=== PATIENT | female | born 1960 | race American Indian/Alaskan Native ===

== ENCOUNTER 2017-10-17 18:58 | Inpatient (IN) | payer BC, OTHER ==
[2017-10-17] MEDS ORDERED: Sodium Chloride 0.9% 1,000 ML IV STA (19:35)
--- NOTE | 2017-10-17 19:38 | C.PDOC ---
History Of Present Illness 57 y/o F p/w L flank pain x about 3 weeks[address] Patient had outpatient CT which showed kidney stone and has been taking ibuprofen 800mg for pain, referred to Dr. Tyrone Barreto but has not yet made appointment. Today, with same but much worsening pain, L flank, radiating to L groin, severe, associated with painful urination and instructed by physician to come to ED. Denies fever, chills, nausea, vomiting. Time Seen by Provider: 10/17/17 19:26 Chief Complaint (Nursing): Female Genitourinary Past Medical History Vital Signs: Last Vital Signs Temp 98.1 F 10/17/17 20:47 Pulse 82 10/17/17 20:47 Resp 18 10/17/17 20:47 BP 106/73 10/17/17 20:47 Pulse Ox 97 10/17/17 20:47 - Medical History PMH: HTN, Hyperlipidemia Surgical History: Appendectomy Family History: States: No Known Family Hx - Social History Hx Alcohol Use: No Hx Substance Use: No Review Of Systems Except As Marked, All Systems Reviewed And Found Negative. Constitutional: Negative for: Fever Cardiovascular: Negative for: Chest Pain Physical Exam - Physical Exam Additional Physical Exam Comments: Gen: NAD Head: NC/AT Eyes: PERRL ENT: MMM Neck: Supple Chest: No tenderness CV: Regular rate Lungs: CTA b/l Abd: Soft Back: L CVA tenderness Extremities: No edema Skin: No rash Neuro: Alert, no focal deficit ED Course And Treatment - Laboratory Results Result Diagrams: 10/17/17 20:22 10/17/17 20:09 O2 Sat by Pulse Oximetry: 99 Medical Decision Making Medical Decision Making: IMPRESSION: Markedly enlarged left kidney with severe left hydronephrosis which appears chronic and demonstrates numerous large staghorn calculi involving most major mid and lower pole calyces. An obstructing stone of the left renal pelvis is also present. An acute infectious process or pyelonephritis cannot be excluded. Numerous other incidental findings, which are detailed above. UA shows UTI. Admission indicated for infected obstructive stone. Ciprofloxacin administered. Cultures drawn. Dr. Josue accepts patient to medical service and consult placed for Dr. Barreto. Disposition - Disposition Disposition: HOSPITALIZED Disposition Time: 21:02 Condition: GUARDED - Clinical Impression Clinical Impression: Pyelonephritis, Nephrolithiasis, Hydronephrosis
[2017-10-17] MEDS ORDERED: Sodium Chloride 0.9% 1,000 ML ONE (19:53)
[2017-10-17 20:21] LABS: URINE BACTERIA MANY (<OCC); URINE BILIRUBIN NEGATIVE (NEGATIVE); URINE BLOOD 2+ (NEGATIVE); URINE CLARITY Turbid (Clear); URINE COLOR Yellow (YELLOW); URINE GLUCOSE (UA) NORMAL (Normal); URINE LEUKOCYTE ESTERASE 3+ Leu/uL (Negative); URINE PROTEIN 2+ mg/dL (NEGATIVE); URINE UROBILINOGEN NORMAL mg/dL (0.2-1.0)
[2017-10-17 20:25] LABS: BASO # 0.1 K/uL (0.0-0.2); BASO % 0.7 % (0.0-2.0); EOS # 0.2 K/uL (0.0-0.7); EOS % 1.9 % (0.0-4.0); HEMOGLOBIN 10.9 g/dL (11.0-16.0); LYMPH # 3.7 K/uL (1.0-4.3); LYMPH % 37.3 % (20.0-40.0); MEAN CELL VOLUME 89.4 fL (81.0-99.0); MEAN CORPUSCULAR HEMOGLOBIN 29.2 pg (27.0-31.0); MEAN CORPUSCULAR HGB CONC 32.7 g/dL (33.0-37.0); MEAN PLATELET VOLUME 6.1 fL (7.2-11.7); MONO # 1.2 K/uL (0.0-0.8); MONO % 11.9 % (0.0-10.0); NEUT # 4.8 K/uL (1.8-7.0); NEUT % 48.2 % (50.0-75.0); RBC 3.71 Mil/uL (3.80-5.20); RED CELL DISTRIBUTION WIDTH 15.1 % (11.5-14.5); WHITE BLOOD COUNT 9.9 K/uL (4.8-10.8)
[2017-10-17 21:00] LABS: ALB/GLOB RATIO 0.6 (1.0-2.1); ALBUMIN 3.5 g/dL (3.5-5.0)
[2017-10-17] MEDS ORDERED: Ciprofloxacin 400mg/200ml D5W 400 MG/200 ML BAG IVPB STA (21:20)
[2017-10-17] MEDS ORDERED: Morphine 4 MG/ML VIAL IVP PRN (22:00)
[2017-10-18] MEDS: Ciprofloxacin 400mg/200ml D5W 400 MG/200 ML BAG IVPB SCH (10:49)
--- NOTE | 2017-10-18 11:37 | CP.PCM.HP ---
History of Present Illness - History of Present Illness History of Present Illness: pt came in to er for progressive flank pain and uti has renal stons Present on Admission - Present on Admission Any Indicators Present on Admission: No Review of Systems - Review of Systems Systems not reviewed;Unavailable: Acuity of Condition - Constitutional Constitutional: Fatigue - EENT Eyes: As Per HPI Ears: As Per HPI Nose/Mouth/Throat: As Per HPI - Breasts Breasts: As Per HPI - Cardiovascular Cardiovascular: As Per HPI - Respiratory Respiratory: As Per HPI - Gastrointestinal Gastrointestinal: As Per HPI - Genitourinary Genitourinary: Dysuria, Flank Pain, Pyuria, Urinary Frequency Additional comments: kidney stons - Reproductive: Female Reproductive:Female: As Per HPI - Menstruation Menstruation: As Per HPI, Post Menopausal - Musculoskeletal Musculoskeletal: Abnormal Gait - Integumentary Integumentary: As Per HPI - Neurological Neurological: As Per HPI - Endocrine Endocrine: As Per HPI - Hematologic/Lymphatic Hematologic: As Per HPI Past Patient History - Past Medical History & Family History Past Medical History?: Yes - Past Social History Smoking Status: Never Smoked - CARDIAC Hx Cardiac Disorders: Yes Hx Hypertension: Yes - PULMONARY Hx Respiratory Disorders: No - NEUROLOGICAL Hx Neurological Disorder: No - HEENT Hx HEENT Problems: No - RENAL Hx Chronic Kidney Disease: No - ENDOCRINE/METABOLIC Hx Endocrine Disorders: No - HEMATOLOGICAL/ONCOLOGICAL Hx Blood Disorders: No - INTEGUMENTARY Hx Dermatological Problems: No - MUSCULOSKELETAL/RHEUMATOLOGICAL Hx Falls: No - GASTROINTESTINAL Hx Gastrointestinal Disorders: No - GENITOURINARY/GYNECOLOGICAL Hx Genitourinary Disorders: Yes Hx Urinary Tract Infection: Yes Other/Comment: KIDNEY STONE, LEFT - PSYCHIATRIC Hx Substance Use: No - SURGICAL HISTORY Hx Surgeries: Yes Hx Appendectomy: Yes - ANESTHESIA Hx Anesthesia: Yes Hx Anesthesia Reactions: No Hx Malignant Hyperthermia: No Has any member of the family had a problem w/ anesthesia?: No Meds Allergies/Adverse Reactions: Allergies Allergy/AdvReac Type Severity Reaction Status Date / Time No Known Allergies Allergy Unverified 10/17/17 19:22 Physical Exam - Constitutional Appears: In Acute Distress - Head Exam Head Exam: ATRAUMATIC - Eye Exam Eye Exam: Normal appearance Pupil Exam: NORMAL ACCOMODATION - ENT Exam ENT Exam: Mucous Membranes Moist - Neck Exam Neck exam: Positive for: Full Rom - Respiratory Exam Respiratory Exam: Decreased Breath Sounds - Cardiovascular Exam Cardiovascular Exam: REGULAR RHYTHM - GI/Abdominal Exam GI & Abdominal Exam: Normal Bowel Sounds, Tenderness (both flank areas) Additional comments: both flank areas - Rectal Exam Rectal Exam: Deferred - Extremities Exam Extremities exam: Positive for: normal inspection - Back Exam Back exam: CVA tenderness (L) - Neurological Exam Neurological exam: Oriented x3 - Psychiatric Exam Psychiatric exam: Normal Affect - Skin Skin Exam: Normal Color Results - Vital Signs Recent Vital Signs: Last Vital Signs Temp 98.6 F 10/18/17 08:00 Pulse 76 10/18/17 08:00 Resp 20 10/18/17 08:00 BP 103/59 L 10/18/17 08:00 Pulse Ox 96 10/18/17 08:00 - Labs Result Diagrams: 10/17/17 20:22 10/17/17 20:09 Labs: Laboratory Results - last 24 hr 10/17/17 10/17/17 10/17/17 20:09 20:09 20:22 WBC 9.9 RBC 3.71 L Hgb 10.9 L Hct 33.2 L MCV 89.4 MCH 29.2 MCHC 32.7 L RDW 15.1 H Plt Count 537 H MPV 6.1 L Neut % (Auto) 48.2 L Lymph % (Auto) 37.3 Sampson % (Auto) 11.9 H Eos % (Auto) 1.9 Baso % (Auto) 0.7 Neut # (Auto) 4.8 Lymph # (Auto) 3.7 Sampson # (Auto) 1.2 H Eos # (Auto) 0.2 Baso # (Auto) 0.1 Sodium 142 Potassium 4.4 Chloride 100 Carbon Dioxide 29 Anion Gap 17 BUN 18 H Creatinine 1.2 Est GFR ( Amer) 56 Est GFR (Non-Af Amer) 46 Random Glucose 122 H Calcium 10.0 Total Bilirubin 0.4 AST 32 ALT 23 Alkaline Phosphatase 147 H Total Protein 9.0 H Albumin 3.5 Globulin 5.5 H Albumin/Globulin Ratio 0.6 L Urine Color Yellow Urine Clarity Turbid Urine pH 5.0 Ur Specific [place] 1.019 Urine Protein 2+ H Urine Glucose (UA) Normal Urine Ketones Negative Urine Blood 2+ H Urine Nitrate Negative Urine Bilirubin Negative Urine Urobilinogen Normal Ur Leukocyte Esterase 3+ H Urine WBC (Auto) 8994 H Urine RBC (Auto) 516 H Urine Bacteria Many H Assessment & Plan - Assessment and Plan (Free Text) Assessment: ac uti kidney stons aneamia posible dm Plan: admit and as per orders - Date & Time Date: 10/18/17 Time: 11:41
--- NOTE | 2017-10-18 12:46 | CT ---
Date of service: 10/17/2017 PROCEDURE: CT Abdomen and Pelvis without intravenous contrast HISTORY: L flank pain COMPARISON: None. TECHNIQUE: Helical CT of the abdomen and pelvis was performed without oral or intravenous contrast as per referring physician request. Contrast dose: None Radiation dose: Total exam DLP = 1020.57 mGy-cm. This CT exam was performed using one or more of the following dose reduction techniques: Automated exposure control, adjustment of the mA and/or kV according to patient size, and/or use of iterative reconstruction technique. FINDINGS: LOWER THORAX: Linear atelectasis or fibrosis in the left lower lobe bases with patchy atelectasis identified in the bilateral bases otherwise. Mild cardiomegaly, trace pericardial effusion or thickening. Small hiatal hernia. LIVER: Unremarkable. No gross lesion or ductal dilatation. GALLBLADDER AND BILE DUCTS: Unremarkable. PANCREAS: Unremarkable. No gross lesion or ductal dilatation. SPLEEN: Unremarkable. ADRENALS: Unremarkable. No mass. KIDNEYS AND URETERS: There there is a grossly enlarged left kidney due to large staghorn calculus and obstructive uropathy resulting. Pyonephrosis is not excluded. The left kidney measures 18.2 x 11.3 x 11.8 cm. Limited perinephric reaction is appreciated. The pattern is long-standing although infection may be acute. Clinically correlate further. The lack images contrast limits interpretation. The right kidney appears unremarkable as imaged. VASCULATURE: Unremarkable. No aortic aneurysm. BOWEL: The stomach is decompressed. There is no bowel obstruction identified. Moderate fecal loading is seen in various large-bowel segments there is a large right spigelian hernia containing several loops of large and small bowel. No incarceration appreciable. The neck of the hernia measures 7.5 cm. A small umbilical hernia is identified containing a minimal amount of fat within neck measuring 3.4 cm. APPENDIX: Unremarkable. Normal appendix. PERITONEUM: Unremarkable. No free fluid. No free air. LYMPH NODES: Unremarkable. No enlarged lymph nodes. BLADDER: Unremarkable. REPRODUCTIVE: Lobular uterine soft tissue changes are appreciate suggesting fibroid uterine disease. BONES: No acute fracture. OTHER FINDINGS: None. IMPRESSION: 1. Obstructive enlargement of the left kidney is appreciated due low staghorn calculus causing gross hydronephrosis with underlying pyonephrosis not excluded of indeterminate age. Enlargement is chronic but the possibility of an acute infection is not excluded. Unremarkable right kidney in urinary bladder. 2. Large right spigelian hernia containing bowel without obstruction/incarceration. Small umbilical hernia containing only mesenteric fat. 3. Lack of contrast agents limits the interpretation of the abdominal and pelvic viscera. There is likely uterine fibroid disease. Concordant preliminary report from [facility], 11/13/2017.
[2017-10-18] MEDS: Rosuvastatin Calcium 2.5 mg Tab PO SCH (21:21)
[2017-10-19] MEDS: Ciprofloxacin 400mg/200ml D5W 400 MG/200 ML BAG IVPB SCH (09:38)
--- NOTE | 2017-10-19 09:50 | CP.PCM.PN ---
Subjective - Date & Time of Evaluation Date of Evaluation: 10/19/17 Time of Evaluation: 09:47 - Subjective Subjective: pt still in a lot of pain flank area still has uti aneamia Objective - Vital Signs/Intake and Output Vital Signs (last 24 hours): Temp Pulse Resp BP Pulse Ox 99.4 F 81 20 94/65 L 96 10/19/17 08:00 10/19/17 08:00 10/19/17 08:00 10/19/17 08:00 10/19/17 08:00 Intake and Output: 10/19/17 10/19/17 06:59 18:59 Intake Total 100 Balance 100 - Medications Medications: Current Medications Docusate Sodium (Colace) 100 mg PO BID [facility] Last Admin: 10/19/17 09:39 Dose: 100 mg Hydrochlorothiazide (Hydrodiuril) 25 mg PO DAILY [facility] Last Admin: 10/18/17 10:49 Dose: 25 mg Ciprofloxacin (Cipro 400mg/200ml Dsw) 400 mg in 200 mls @ 133 mls/hr IVPB DAILY [facility] PRN Reason: Protocol Last Admin: 10/19/17 09:38 Dose: 133 mls/hr Ketorolac Tromethamine (Toradol) 30 mg IVP Q8H PRN PRN Reason: Pain, moderate (4-7) Last Admin: 10/18/17 17:51 Dose: 30 mg Morphine Sulfate (Morphine) 4 mg IVP Q6H PRN PRN Reason: Pain, severe (8-10) Pneumococcal Polyvalent Vaccine (Pneumovax 23 Vaccine) 0.5 ml IM .ONCE ONE Stop: 10/19/17 10:01 Rosuvastatin Calcium (Crestor) 2.5 mg PO [facility] Last Admin: 10/18/17 21:21 Dose: 2.5 mg - Labs Labs: 10/17/17 20:22 10/17/17 20:09 - Constitutional Appears: Non-toxic, In Acute Distress - Head Exam Head Exam: NORMOCEPHALIC - Eye Exam Eye Exam: Normal appearance Pupil Exam: NORMAL ACCOMODATION - ENT Exam ENT Exam: Mucous Membranes Moist - Neck Exam Neck Exam: Full ROM - Respiratory Exam Respiratory Exam: Decreased Breath Sounds - Cardiovascular Exam Cardiovascular Exam: REGULAR RHYTHM - GI/Abdominal Exam GI & Abdominal Exam: Tenderness, Normal Bowel Sounds - Rectal Exam Rectal Exam: NORMAL INSPECTION - Extremities Exam Extremities Exam: Normal Inspection - Back Exam Back Exam: NORMAL INSPECTION - Neurological Exam Neurological Exam: Oriented x3 - Psychiatric Exam Psychiatric exam: Normal Mood - Skin Skin Exam: Pallor Assessment and Plan - Assessment and Plan (Free Text) Assessment: arabella leggett colimelissa bell uti Plan: as per orders
[2017-10-19] MEDS ORDERED: Pneumococcal 23-Valent Vaccine IM ONE (10:00)
[2017-10-19] MEDS ORDERED: Magnesium Hydroxide Susp 30 ml UD PO ONE (12:54)
[2017-10-19] MEDS ORDERED: Bisacodyl 5mg EC Tab PO ONE (16:00)
[2017-10-19] MEDS: Rosuvastatin Calcium 2.5 mg Tab PO SCH (21:44)
[2017-10-20] MEDS: Ciprofloxacin 400mg/200ml D5W 400 MG/200 ML BAG IVPB SCH ×2 (09:18→18:49)
[2017-10-20 11:29] LABS: BASO # 0.1 K/uL (0.0-0.2); BASO % 1.1 % (0.0-2.0); EOS # 0.1 K/uL (0.0-0.7); HEMOGLOBIN 11.5 g/dL (11.0-16.0); LYMPH # 4.7 K/uL (1.0-4.3); LYMPH % 43.7 % (20.0-40.0); MEAN CELL VOLUME 88.5 fL (81.0-99.0); MEAN CORPUSCULAR HGB CONC 33.9 g/dL (33.0-37.0); MEAN PLATELET VOLUME 6.2 fL (7.2-11.7); MONO % 8.9 % (0.0-10.0); NEUT # 4.9 K/uL (1.8-7.0); NEUT % 45.3 % (50.0-75.0); RBC 3.82 Mil/uL (3.80-5.20); RED CELL DISTRIBUTION WIDTH 14.4 % (11.5-14.5); WHITE BLOOD COUNT 10.7 K/uL (4.8-10.8)
[2017-10-20 12:14] LABS: BLOOD UREA NITROGEN 11 mg/dL (7-17); CALCIUM 9.3 mg/dl (8.6-10.4); GFR AFRICAN-AMERICAN > 60; GFR NON-AFRICAN AMERICAN > 60
[2017-10-20] MEDS ORDERED: Midazolam 2 MG/2 ML VIAL ONE (14:58)
[2017-10-20] MEDS ORDERED: Propofol 10 mg/ml Inj (20 ML) ONE (14:58)
[2017-10-20] MEDS ORDERED: HYDROmorphone 0.5 mg/0.5 ml ISec IVP PRN (15:01)
[2017-10-20] MEDS ORDERED: Oxycodone/Acetaminophen 5/325 mg Tab PO PRN (15:05)
[2017-10-20] MEDS ORDERED: cefTRIAXone IV 1 gm in Dextros 50 ML IVPB ONE (15:11)
[2017-10-20] MEDS ORDERED: Iohexol 240 (50 ml) ONE (15:11)
--- NOTE | 2017-10-20 16:20 | RAD ---
Date of service: 10/20/2017 PROCEDURE: Intraoperative Fluoroscopy. HISTORY: LT STAGHORN CALCULI FINDINGS: Fluoroscopic assistance was provided for retrograde study. Please refer to the operative report from CJ Herrera, , MD WINDY. Total fluoroscopic time (continuous mode) utilized during the procedure 14.7 (seconds).
--- NOTE | 2017-10-20 16:50 | RAD ---
Date of service: 10/20/2017 HISTORY: LT STAGHORN CALCULI COMPARISON: 10/17/2017 CT abdomen and pelvis FINDINGS: BOWEL: Normal. No obstruction. No free air. BONES: Normal. OTHER FINDINGS: Unilateral, left staghorn calculus. IMPRESSION: Staghorn calculus identified, finding better visualized on the recent CT scan. Otherwise unremarkable study
--- NOTE | 2017-10-20 18:57 | CP.PCM.PN ---
Subjective - Date & Time of Evaluation Date of Evaluation: 10/20/17 Time of Evaluation: 18:54 - Subjective Subjective: still has flank pain less suprapubic pain afebrile Objective - Vital Signs/Intake and Output Vital Signs (last 24 hours): Temp Pulse Resp BP Pulse Ox 98.3 F 73 19 106/60 98 10/20/17 17:00 10/20/17 17:00 10/20/17 17:00 10/20/17 17:00 10/20/17 17:00 Intake and Output: 10/20/17 10/20/17 06:59 18:59 Intake Total 450 600 Output Total 300 Balance 450 300 - Medications Medications: Current Medications Docusate Sodium (Colace) 100 mg PO BID [facility] Last Admin: 10/20/17 18:49 Dose: 100 mg Hydrochlorothiazide (Hydrodiuril) 25 mg PO DAILY [facility] Last Admin: 10/20/17 09:03 Dose: Not Given Ciprofloxacin (Cipro 400mg/200ml Dsw) 400 mg in 200 mls @ 133 mls/hr IVPB Q12H [facility] PRN Reason: Protocol Last Admin: 10/20/17 18:49 Dose: 133 mls/hr Morphine Sulfate (Morphine) 4 mg IVP Q6H PRN PRN Reason: Pain, severe (8-10) Oxycodone/Acetaminophen (Percocet 5/325 Mg Tab) 1 tab PO Q6H PRN PRN Reason: Bladder Spasm Stop: 10/23/17 15:06 Phenazopyridine HCl (Pyridium) 200 mg PO TIDPC [facility] Rosuvastatin Calcium (Crestor) 2.5 mg PO [facility] Last Admin: 10/19/17 21:44 Dose: 2.5 mg - Labs Labs: 10/20/17 11:25 10/20/17 11:25 - Constitutional Appears: Non-toxic - Head Exam Head Exam: NORMAL INSPECTION - Eye Exam Eye Exam: Normal appearance Pupil Exam: NORMAL ACCOMODATION - ENT Exam ENT Exam: Normal Exam - Neck Exam Neck Exam: Normal Inspection - Respiratory Exam Respiratory Exam: Clear to Ausculation Bilateral - Cardiovascular Exam Cardiovascular Exam: REGULAR RHYTHM - GI/Abdominal Exam GI & Abdominal Exam: Tenderness, Normal Bowel Sounds - Rectal Exam Rectal Exam: NORMAL INSPECTION - Exam Exam: NORMAL INSPECTION External exam: NORMAL EXTERNAL EXAM - Back Exam Back Exam: CVA tenderness (L) - Neurological Exam Neurological Exam: Alert, Awake, Oriented x3 - Psychiatric Exam Psychiatric exam: Normal Affect - Skin Skin Exam: Normal Color Assessment and Plan - Assessment and Plan (Free Text) Assessment: acute urosepses proteas infection kidney stons will cont treatmen my d/c in am
[2017-10-20] MEDS: Rosuvastatin Calcium 2.5 mg Tab PO SCH (22:02)
[2017-10-21 01:29] VITALS: RESP 20
[2017-10-21] MEDS: Ciprofloxacin 400mg/200ml D5W 400 MG/200 ML BAG IVPB SCH ×2 (05:51→17:24)
--- NOTE | 2017-10-21 06:34 | CON ---
Copied To: José Manuel Barreto MD Attending MD: José Manuel Barreto MD DATE: 10/20/2017 UROLOGY CONSULT REASON FOR CONSULTATION: Kidney stones. HISTORY OF PRESENT ILLNESS: I was called originally by service on 10/18/2017. I was called by hospital secretary. I then subsequently spoke to a nurse. Discussed seeing the patient today, and now it is 10/20/2017, and we are seeing the patient for consultation. See the plans listed below. The patient was admitted to the hospital for "UTI" with kidney stones. She has not had any intermittent pain. The patient is admitted under Ashley Molina . Urology was consulted regarding stone management. See the plans listed below. She comes to the OR for a stent insertion. PAST MEDICAL AND SURGICAL HISTORY: As listed on the chart. No history of an WI or CVA. SOCIAL HISTORY: She is here with her daughters. I actually had a chance to speak to her daughters over the weekend as well. REVIEW OF SYSTEMS: As listed above, noncontributory. PHYSICAL EXAMINATION: GENERAL: A well-nourished female, in no apparent distress, currently resting comfortably in the [facility] [place]. VITAL SIGNS: Within normal limits, included in the chart. LUNGS: Clear. HEART: Normal S1, S2. ABDOMEN: Overall soft. Nontender. LABORATORY DATA: CT scan and labs are all in the chart. DIAGNOSES: Urolithiasis with hematuria, hydronephrosis, and stone disease. PLAN: As follows: We are going to do this in stages. I explained this to the patient. I explained stone burden. We discussed different options. We discussed locations, etc. Today, we are going to plan for cystoscopy, retrograde, and possible stent insertion, and then further plans will follow. Again, we need to consider various options. Again, she is 57 years old, relatively healthy. We did discuss various options, but today, we are planning for a cystoscopy, retrograde, and stent, and then further plans, we will follow. MD Priscilla Wick 10/20/2017 15:16:24
--- NOTE | 2017-10-21 10:35 | CP.PCM.PN ---
Subjective - Date & Time of Evaluation Date of Evaluation: 10/21/17 Time of Evaluation: 10:33 - Subjective Subjective: less pain afebril today Objective - Vital Signs/Intake and Output Vital Signs (last 24 hours): Temp Pulse Resp BP Pulse Ox 98.9 F 84 20 101/67 96 10/21/17 07:52 10/21/17 07:52 10/21/17 07:52 10/21/17 07:52 10/21/17 07:52 Intake and Output: 10/21/17 10/21/17 06:59 18:59 Intake Total 700 Output Total 570 Balance 130 - Medications Medications: Current Medications Docusate Sodium (Colace) 100 mg PO BID [facility] Last Admin: 10/20/17 18:49 Dose: 100 mg Hydrochlorothiazide (Hydrodiuril) 25 mg PO DAILY [facility] Last Admin: 10/20/17 09:03 Dose: Not Given Ciprofloxacin (Cipro 400mg/200ml Dsw) 400 mg in 200 mls @ 133 mls/hr IVPB Q12H [facility] PRN Reason: Protocol Last Admin: 10/21/17 05:51 Dose: 133 mls/hr Morphine Sulfate (Morphine) 4 mg IVP Q6H PRN PRN Reason: Pain, severe (8-10) Last Admin: 10/20/17 20:31 Dose: 4 mg Oxycodone/Acetaminophen (Percocet 5/325 Mg Tab) 1 tab PO Q6H PRN PRN Reason: Bladder Spasm Stop: 10/23/17 15:06 Phenazopyridine HCl (Pyridium) 200 mg PO TIDPC [facility] Last Admin: 10/20/17 18:00 Dose: 200 mg Rosuvastatin Calcium (Crestor) 2.5 mg PO HS [facility] Last Admin: 10/20/17 22:02 Dose: 2.5 mg - Labs Labs: 10/20/17 11:25 10/20/17 11:25 - Constitutional Appears: Non-toxic - Head Exam Head Exam: NORMAL INSPECTION - Eye Exam Eye Exam: Normal appearance Pupil Exam: NORMAL ACCOMODATION - ENT Exam ENT Exam: Normal Exam - Neck Exam Neck Exam: Full ROM - Respiratory Exam Respiratory Exam: Decreased Breath Sounds - GI/Abdominal Exam GI & Abdominal Exam: Tenderness - Extremities Exam Extremities Exam: Normal Inspection - Back Exam Back Exam: NORMAL INSPECTION - Neurological Exam Neurological Exam: Oriented x3 - Psychiatric Exam Psychiatric exam: Normal Mood - Skin Skin Exam: Normal Color Assessment and Plan - Assessment and Plan (Free Text) Assessment: urosepses improvind renal stone dm Plan: repeate ua
[2017-10-21 13:10] LABS: URINE BACTERIA FEW (<OCC); URINE BILIRUBIN NEGATIVE (NEGATIVE); URINE BLOOD 2+ (NEGATIVE); URINE CLARITY Turbid (Clear); URINE COLOR Yellow (YELLOW); URINE GLUCOSE (UA) NORMAL (Normal); URINE LEUKOCYTE ESTERASE 3+ Leu/uL (Negative); URINE PROTEIN 2+ mg/dL (NEGATIVE)
[2017-10-21] MEDS: Rosuvastatin Calcium 2.5 mg Tab PO SCH (21:46)
--- NOTE | 2017-10-22 00:19 | PCM.URO ---
Urology Progress Note - Subjective Abdominal Pain: Yes Hematuria: Yes (staghorn calculus) Fever & Chills: Yes - Objective Lab Results Last 24 Hours: Laboratory Results - last 24 hr 10/21/17 12:55 Urine Color Yellow Urine Clarity Turbid Urine pH 6.0 Ur Specific [place] 1.014 Urine Protein 2+ H Urine Glucose (UA) Normal Urine Ketones Negative Urine Blood 2+ H Urine Nitrate Positive H Urine Bilirubin Negative Urine Urobilinogen 4.0 H Ur Leukocyte Esterase 3+ H Urine WBC (Auto) 2243 H Urine RBC (Auto) 73 H Urine Bacteria Few H Intake & Output: Intake & Output 10/21/17 10/21/17 10/22/17 06:59 18:59 06:59 Intake Total 700 260 300 Output Total 570 500 Balance 130 -240 300 Intake: Intake, IV Amount 400 Left Hand 400 Oral 300 260 300 Output: Urine 570 500 Urethral (Ramirez) 320 500 Urine, Voided 250 Other: # Voids Urethral (Ramirez) 3 # Bowel Movements 0 Vital Signs: Vital Signs - 24 hr 10/21/17 10/21/17 07:52 15:30 Temperature 98.9 F 99.6 F Pulse Rate 84 83 Respiratory 20 20 Rate Blood Pressure 101/67 101/63 O2 Sat by Pulse 96 96 Oximetry - Plan Discontinue Urinary Catheter: Yes (s/p placement of ureteral stent. pt with large staghorn calculus. ) See Orders: Yes (pt will need nephrostolithotimy ) - Date & Time of Note Date: 10/21/17
[2017-10-22] MEDS: Ciprofloxacin 400mg/200ml D5W 400 MG/200 ML BAG IVPB SCH ×2 (05:26→18:02)
[2017-10-22] MEDS ORDERED: Bisacodyl 5mg EC Tab PO ONE (09:38)
--- NOTE | 2017-10-22 11:24 | CP.PCM.PN ---
Subjective - Date & Time of Evaluation Date of Evaluation: 10/22/17 Time of Evaluation: 11:21 - Subjective Subjective: pt has renal scan today less flank pain repeate urin less infection proteos mirabilis sensitive to cipro Objective - Vital Signs/Intake and Output Vital Signs (last 24 hours): Temp Pulse Resp BP Pulse Ox 98.7 F 77 20 101/66 95 10/22/17 08:58 10/22/17 08:58 10/22/17 08:58 10/22/17 08:58 10/22/17 08:58 Intake and Output: 10/22/17 10/22/17 06:59 18:59 Intake Total 740 Balance 740 - Medications Medications: Current Medications Docusate Sodium (Colace) 100 mg PO BID [facility] Last Admin: 10/22/17 09:33 Dose: 100 mg Hydrochlorothiazide (Hydrodiuril) 25 mg PO DAILY [facility] Last Admin: 10/22/17 09:33 Dose: 25 mg Ciprofloxacin (Cipro 400mg/200ml Dsw) 400 mg in 200 mls @ 133 mls/hr IVPB Q12H [facility] PRN Reason: Protocol Last Admin: 10/22/17 05:26 Dose: 133 mls/hr Oxycodone/Acetaminophen (Percocet 5/325 Mg Tab) 1 tab PO Q6H PRN PRN Reason: Bladder Spasm Stop: 10/23/17 15:06 Phenazopyridine HCl (Pyridium) 200 mg PO TIDPC [facility] Last Admin: 10/22/17 09:33 Dose: 200 mg Rosuvastatin Calcium (Crestor) 2.5 mg PO HS [facility] Last Admin: 10/21/17 21:46 Dose: 2.5 mg - Labs Labs: 10/20/17 11:25 10/20/17 11:25 - Constitutional Appears: Non-toxic - Head Exam Head Exam: NORMAL INSPECTION - Eye Exam Eye Exam: Normal appearance Pupil Exam: NORMAL ACCOMODATION - ENT Exam ENT Exam: Normal Exam - Neck Exam Neck Exam: Normal Inspection - Respiratory Exam Respiratory Exam: Clear to Ausculation Bilateral - Cardiovascular Exam Cardiovascular Exam: REGULAR RHYTHM - GI/Abdominal Exam GI & Abdominal Exam: Tenderness Additional comments: flank - Rectal Exam Rectal Exam: NORMAL INSPECTION - Exam Exam: NORMAL INSPECTION - Extremities Exam Extremities Exam: Full ROM - Back Exam Back Exam: NORMAL INSPECTION - Neurological Exam Neurological Exam: Alert, Oriented x3 - Psychiatric Exam Psychiatric exam: Normal Affect - Skin Skin Exam: Normal Color Assessment and Plan - Assessment and Plan (Free Text) Assessment: acute urosepses stag horn stoneaneamia Plan: will dc on cipro and f/u by dr hoffman
--- NOTE | 2017-10-22 11:34 | PN ---
Copied To: José Manuel Barreto MD Attending MD: José Manuel Barreto MD DATE: 10/21/2017 UROLOGY PROGRESS NOTE See the consultation from 10/17/2017 and operative note from 10/20/2017. SUBJECTIVE: The patient is currently resting comfortably. We are planning for voiding trials. See below. is at the bedside. Family is at the bedside. She feels a little bit better, not all better yet. PAST MEDICAL AND SURGICAL HISTORY: Otherwise as listed. REVIEW OF SYSTEMS: No changes in review of systems as listed above. PHYSICAL EXAMINATION: GENERAL: Well-nourished female. She is currently resting comfortably. ABDOMEN: Overall soft. GENITOURINARY: Ramirez catheter is draining now with clear urine. DIAGNOSES: 1. Urinary retention. 2. Pyuria. 3. Purulent urine. 4. Pyelonephrosis. 4. Tremendous stone burden. 5. Severe renal colic. 6. Pyelonephritis/urinary tract infection. PLAN: Urology plan is as follows. 1. We are going to order a followup KUB. 2. We are going to order a renal scan. 3. We are going to get a trial of void. 4. We are going to order Flomax. 5. Further plans follow. It is conceivable that the patient has been passing a little piece of stone fragment that caused the initial pain. The decision to treat the stone as an infectious stone by definition. It is conceivable that is the issue, but if the stone should be treated, the question is where, when, and how, most likely we recommend percutaneous treatment. We will consider consultation with the interventional radiologist to consider percutaneous treatment and I have explained to the patient that may require multiple treatments. The other possibility is to have the patient referred out to an academic center. It is a tremendous stone burden. We can discuss further options with Dr. Farrell and with the patient. I have ordered that we have to discuss these options with the patient. In the interim, she is remaining stable. The plan for today is: 1. Trial of void. 2. Renal scan. 3. KUB. 4. Continue antibiotics and then further plan will follow. José Manuel Barreto MD
--- NOTE | 2017-10-22 11:38 | US ---
Date of service: 10/22/2017 PROCEDURE: Ultrasound of the Bladder HISTORY: retention COMPARISON: None available. TECHNIQUE: Sonographic evaluation of the bladder was performed. FINDINGS: The urinary bladder is grossly normal in appearance without wall thickening or intraluminal debris. No calculus or gross mass lesion. No free fluid in pelvis. Prevoid Volume: 302.24 cc. Post void residual: 106.43 cc. IMPRESSION: Large postvoid residual.
--- NOTE | 2017-10-22 12:18 | NM ---
Date of service: 10/22/2017 PROCEDURE: Renal scan and flow study HISTORY: Assess split renal function. Left and right side COMPARISON: 10/17/2017. CT abdomen and pelvis. TECHNIQUE: 21.5 mCi technetium 99 M DTPA administered intravenously. FINDINGS: Right Kidney: Flow component: Normal flow to the right kidney Time to peak: 12.5 minutes Left Kidney: Flow component: Diminished flow to the left kidney Time to peak: 25.5 minutes Split Renal Function: Right kidney 72.0 % Left kidney 28 % Findings IMPRESSION: Abnormal perfusion and function left kidney consistent with findings on recent CT scan. The left kidney contributes 28% of total renal function.
--- NOTE | 2017-10-22 13:55 | PCM.URO ---
Urology Progress Note - General General: No Complaints, Tolerating Diet - Subjective Abdominal Pain: No Flank Pain: Yes (mild, L) Nausea: No Vomiting: No Voiding Well: Yes Dysuria: No Hematuria: No Good Stream: No Dsypnea: No Chest Pain: No Fever & Chills: No - Objective Lab Studies: Reviewed Intake & Output: Intake & Output 10/21/17 10/22/17 10/22/17 18:59 06:59 18:59 Intake Total 260 740 Output Total 500 Balance -240 740 Intake: Intake, IV Amount 200 Left Hand 200 Oral 260 540 Output: Urine 500 Urethral (Ramirez) 500 Other: # Voids Urethral (Ramirez) 3 Urine, Voided 2 # Bowel Movements 0 0 Vital Signs: Vital Signs - 24 hr 10/21/17 10/22/17 10/22/17 15:30 00:00 08:58 Temperature 99.6 F 98.8 F 98.7 F Pulse Rate 83 80 77 Respiratory 20 20 20 Rate Blood Pressure 101/63 98/59 L 101/66 O2 Sat by Pulse 96 96 95 Oximetry Imaging Studies: Reviewed - Physical Exam Abdominal Exam: Soft, Non-Tender, Non-Distended Back: No CVA Tenderness - Plan Additional Information: IMP: Urolithiasis. L renal calculi. Hydronephrotic atrophy. UTI. Stable clinically p cysto, stent insertion. Pyonephrosis. P? Rec: antibiotic rx. stent in place. further rx re stone to be determined - Date & Time of Note Date: 10/22/17 Time: 13:05
[2017-10-22] MEDS ORDERED: Magnesium Hydroxide Susp 30 ml UD PO ONE (17:04)
[2017-10-22] MEDS ORDERED: Bisacodyl 5mg EC Tab PO PRN (17:18)
[2017-10-22] MEDS: Rosuvastatin Calcium 2.5 mg Tab PO SCH (21:32)
[2017-10-23] MEDS: Ciprofloxacin 400mg/200ml D5W 400 MG/200 ML BAG IVPB SCH (05:21)
--- NOTE | 2017-10-23 05:27 | OP ---
Copied To: José Manuel Barreto MD Attending MD: José Manuel Barreto MD UROLOGY OPERATIVE REPORT PROCEDURE DATE: 10/20/2017 PREOPERATIVE DIAGNOSES: Urolithiasis, hematuria, severe stone burden with a gigantic staghorn stone and multiple calyces. See the consultation note. POSTOPERATIVE DIAGNOSES: Urolithiasis, hematuria, severe stone burden with a gigantic staghorn stone and multiple calyces. See the consultation note. PROCEDURES: Exam under anesthesia, cystoscopy, left retrograde pyelogram, and insertion of double-J stent. COMPLICATIONS: There were no complications. BLOOD LOSS: Less than 10 mL. ADDENDUM: There was difficultly to get the stent in. See my below thoughts. But I do think that perhaps there was a piece of a stone that was obstructing the cause some of her trouble and that may influence the treatment of the entire stone. At the termination of the procedure, the patient has good look and well located double-J stent in. UROLOGY OPERATIVE FINDINGS: 1. The bladder was filled. 2. It is not a postvoid residual, but there was at least 300 to 400 mL in the urinary bladder. In fact, we left the Ramirez catheter and the other findings was there was really purulent urine coming out of both the bladder itself and also over kidney. I tried catching on to the camera purulent drainage like spurting out as if blood would come out of an orifice. In this case, just whitish material coming out of the orifice. I even then awaited for that. See the body of the report, as I thought one time I waited to see if I can see it again. But we did not. There were no complications. The findings as mentioned. INDICATIONS: See history and physical and consultation. A very pleasant lady here with the tremendous stone burden. Here now for the stent insertion, which we did. We also did a Ramirez catheter. Exam under anesthesia, cystoscopy, left retrograde pyelogram, double-J stent insertion, and insertion of Ramirez catheter. DESCRIPTION OF PROCEDURE: After obtaining informed consent with the patient, discussed options to the patient and she is here now for the above procedure. Cystoscope introduced via the urethra the bladder. What we noted was a tremendous amount of urine and then at the end of that is purulent urine. Pus in urine. We drained. We tried getting it for culture, but it got mixed with irrigation. Therefore, it is not to be a great specimen. As well, the patient has already on antibiotics. The procedure continues now. We are identifying the orifice as we watching orifice purulence comes out. We were not able to catch the picture, but we then waited for a minute or so and we do not see further evidence of purulence coming out, we began our procedure. (After doing the procedure even more sure that the patient needed a stent, we even have to discuss possibly percutaneous drainage. We will discuss this further). But I think it should drain well with the double J stenting. Procedure continue with the retrograde pyelogram. Significant abnormalities again, there was tremendous stone burden, but also contrast filled out in a funny way. (I would suspect that there is evidence of thick purulent urine perhaps pyelonephrosis. Again, see the CT scan. I do not know the exact official read, but besides the fluid, it is also just very thin parenchyma. Had a tremendous stone burden. (This represents a chronic process). At this point, we placed a wire, but the wire does not go up to the kidney, see the picture that is taken and saved. It get stuck in the very proximal ureter (we manipulated, we prevailed and ended over the wire, we injected a little bit of extra contrast with the low extra press and a little extra saline with extra pressure. There was no extravasation, but we do note that we were able to then subsequently get the wire and the open-ended ureteral catheter perhaps gently carefully confirmed this position. With the stent, with the open ended up in the kidney. We took the wire in place. We now put in a double-J stent. The patient tolerated without complications. At this point, also leave a Ramirez catheter which will leave for 24 hours and then we will remove it. So, the patient tolerated the procedure without complications. I am planning for the following plan. 1. KUB. 2. We are going to plan for renal scan to see the kidney function. 3. We will discuss options if conceivable with that staghorn can stay as if although my definition is an infected stone and infected stone should most likely be treated. We did also discuss with the patient and the family the idea of percutaneous nephrostolithotomy. Our next step that was to leave the Ramirez, leave the stent to see how she does clinically. We might be giving a voiding trials and continue the antibiotics. The next plan also for renal scan to test function. Further plans will follow. José Manuel Barreto MD
[2017-10-23 07:38] VITALS: BP 104/71; PULSE 74; TEMP 98.7; O2SAT 96
== END 2017-10-23 13:50 | disposition home or self-care (01) | DRG 694 ==
LOC: C.ER 18:58 → C.9E 21:22 → C.3T 22:10
PROVIDERS: ADMIT Internal Medicine; ATTEND Internal Medicine
PROC: BT1FZZZ Fluoroscopy of Left Kidney, Ureter and Bladder (ICD-10-PCS; 2017-10-20)
PROC: 0T778DZ Dilation of Left Ureter with Intraluminal Device, Via Natural or Artificial Opening Endoscopic (ICD-10-PCS; principal; 2017-10-20 13:45)
DX: N13.2 Hydronephrosis with renal and ureteral calculous obstruction (principal); N39.0 Urinary tract infection, site not specified; R33.9 Retention of urine, unspecified; R31.9 Hematuria, unspecified; E78.5 Hyperlipidemia, unspecified; I10 Essential (primary) hypertension; D64.9 Anemia, unspecified